=== PATIENT | female | born 1960 | race Caucasian/White ===

== ENCOUNTER → 2017-07-30 | Outpatient (CLI) | payer BC ==
[2017-07-30 16:51] LABS: INR 0.93; PROTIME 12.5 Sec (11.9-14.9)
[2017-07-30 16:52] LABS: PARTIAL THROMBOPLASTIN TIME 26.7 Sec (25.0-35.0)
== END | disposition home or self-care (01) ==
LOC: LAB 16:18
DX: C82.90 Follicular lymphoma, unspecified, unspecified site (principal)
CPT/HCPCS: 85610; 85730

== ENCOUNTER 2017-08-13 06:55 | Day surgery (SDC) | payer BC ==
[2017-08-13] MEDS: FENTAnyl 50 MCG/ML VIAL (10:05)
[2017-08-13] MEDS: MIDAZOLAM 1 MG/ML 2 ML INJ (10:05)
[2017-08-13] MEDS: SOD CHLORIDE 0.9% 1,000 ML IV (10:05)
[2017-08-13] MEDS: LIDOCAINE 1%/EPI 30 ML INJ (10:30)
[2017-08-13] MEDS: SOD CHLORIDE 0.9% 500 ML (10:30)
[2017-08-13] MEDS: POLYMYXIN/BACITRACIN 1L IRRIG IRR (10:35)
[2017-08-13] MEDS ORDERED: HYDROCODONE/APAP (5/325) TAB PO (11:00)
== END 2017-08-13 12:30 | disposition home or self-care (01) ==
LOC: SDS 06:55
DX: Z45.2 Encounter for adjustment and management of vascular access device (principal); Z85.72 Personal history of non-Hodgkin lymphomas
CPT/HCPCS: 36590

== ENCOUNTER 2017-08-27 21:41 | Emergency (ER) | payer BC ==
[2017-08-27] MEDS: KETOROLAC 30 MG INJ IM (23:01)
== END 2017-08-28 00:23 | disposition home or self-care (01) ==
LOC: FTE 08-28 00:23
DX: J10.1 Influenza due to other identified influenza virus with other respiratory manifestations (principal)
CPT/HCPCS: 71045; 87400; 87880; 96372; 99284-25

== ENCOUNTER → 2018-02-09 | Outpatient (CLI) | payer BC ==
[2018-02-09 10:35] LABS: ADD MAN DIFF? NO
[2018-02-09 11:29] LABS: ALANINE AMINOTRANSFERASE 35 IU/L (13-69); ALBUMIN 4.3 g/dl (3.3-4.9); ALBUMIN/GLOBULIN RATIO 1.79; ALKALINE PHOSPHATASE 65 IU/L (42-121); ANION GAP 11 (8-16); ASPARTATE AMINO TRANSFERASE 37 IU/L (15-46); BILIRUBIN,INDIRECT 0.5 mg/dl (0-1.1); BILIRUBIN,TOTAL 0.5 mg/dl (0.2-1.3); BLOOD UREA NITROGEN 14 mg/dl (7-20); CALCIUM 9.6 mg/dl (8.4-10.2); CARBON DIOXIDE 28 mmol/L (21-31); CHLORIDE 107 mmol/L (97-110); CHOL/HDL RATIO 4.1 RATIO; CHOLESTEROL 208 mg/dl (100-200); CREATININE 0.72 mg/dl (0.44-1.00); GLUCOSE 88 mg/dl (70-220); HDL CHOLESTEROL 50 mg/dl (37-92); LDL CHOLESTEROL,CALCULATED 133 mg/dl; POTASSIUM 5.2 mmol/L (3.5-5.1); SODIUM 141 mmol/L (135-144); TOTAL PROTEIN 6.7 g/dl (6.1-8.1); TRIGLYCERIDES 127 mg/dl (0-149)
[2018-02-09 11:57] LABS: WHITE BLOOD COUNT 4.7 10^3/ul (4.8-10.8)
[2018-02-09 11:57] LABS: ABNORMAL IP MESSAGE 1; BASOPHILS % 0.8 % (0.0-2.0); EOSINOPHILS # 0.1 10^3/ul (0.0-0.5); HEMOGLOBIN 13.9 g/dl (12.0-16.0); LYMPHOCYTES # 0.6 10^3/ul (0.8-2.9); LYMPHOCYTES % 11.8 % (15.0-51.0); MEAN CORPUSCULAR HEMOGLOBIN 29.2 pg (29.0-33.0); MEAN CORPUSCULAR HGB CONC 33.1 g/dl (32.0-37.0); MEAN CORPUSCULAR VOLUME 88.2 fl (82.0-101.0); MEAN PLATELET VOLUME 11.3 fl (7.4-10.4); MONOCYTE # 0.4 10^3/ul (0.3-0.9); MONOCYTES % 8.9 % (0.0-11.0); NEUTROPHIL # 3.3 10^3/ul (1.6-7.5); NEUTROPHILS % 70.2 % (39.0-77.0); PLATELET COUNT 198 10^3/UL (140-415); RED BLOOD COUNT 4.76 10^6/ul (4.20-5.40); RED CELL DISTRIBUTION WIDTH 12.2 % (11.5-14.5)
[2018-02-09 11:59] LABS: POSITIVE DIFF @See below
[2018-02-09 12:09] LABS: HEMOGLOBIN A1C 5.9 % (0-5.9)
[2018-02-09 12:36] LABS: ANISOCYTOSIS 1+ (0-0); BAND NEUTROPHILS #M 1.7 10^3/ul (0.0-0.6); BAND NEUTROPHILS % (M) 37 % (0-4); EOSINOPHILS % (M) 4 % (0-7); LYMPHOCYTES #M 0.4 10^3/ul (0.8-2.9); LYMPHOCYTES % (M) 9 % (15-51); METAMYELOCYTES %M 1 % (0-0); MICROCYTOSIS 1+ (0-0); MONOCYTE #M 0.5 10^3/ul (0.3-0.9); MONOCYTES % (M) 11 % (0-11); PLATELET ESTIMATE NORMAL; POIKILOCYTOSIS 1+ (0-0); POLYCHROMASIA 3+ (0-0); REACTIVE LYMPHOCYTES #M 0.2 10^3/ul (0.0-0.0); REACTIVE LYMPHOCYTES% (M) 5 % (0-0); SEG NEUT #M 1.6 10^3/ul (1.6-7.5); SEGMENTED NEUTROPHILS (M) % 33 % (39-77); SMUDGE%M 6 % (0-0)
[2018-02-09 13:00] LABS: T4 (THYROXINE) 6.4 ug/dl (5.5-11.0)
== END | disposition home or self-care (01) ==
LOC: LAB 09:52
DX: E03.9 Hypothyroidism, unspecified (principal); E78.5 Hyperlipidemia, unspecified; R73.03 Prediabetes
CPT/HCPCS: 80053; 80061; 83036; 84436; 84443; 85025